=== PATIENT | female | born 1945 | race Two or more races ===

== ENCOUNTER 2022-01-20 12:08 | Inpatient (IN) | payer MEDICARE ==
[~2022-01-20] VITALS: Ht 162.6 cm; Wt 71.9 kg
[2022-01-20 13:43] LABS: Basophils # (auto) 0 10 ^3/uL (0-0.2); Basophils % (auto) 0.5 % (0.0-2.0); Eosinophils # (auto) 0 10 ^3/uL (0-0.8); Eosinophils % (auto) 0.1 % (0.0-7.0); Hematocrit 44.2 % (36.0-46.0); Hemoglobin 14.4 g/dL (12.2-16.2); Lymphocytes # (auto) 1.5 10 ^3/uL (0.4-5.4); Lymphocytes % (auto) 29.9 % (10.0-50.0); Mean Corpuscular Hgb Conc. 32.6 g/dL (32.0-36.0); Mean Corpuscular Volume 88.8 fL (80.0-100.0); Monocytes # (auto) 0.4 10 ^3/uL (0-1.3); Monocytes % (auto) 7.6 % (0.0-12.0); Neutrophils # (auto) 3.1 10 ^3/uL (1.6-8.6); Neutrophils % (auto) 61.9 % (37.0-80.0); Nucleated Red Blood Cells % 0.2 %; Red Blood Cells 4.97 10^6/uL (4.0-5.20); Red Cell Distribution Width 12.8 % (11.8-14.3)
[2022-01-20 14:00] LABS: Albumin 3.3 g/dL (3.4-5.0); Calcium 8.7 mg/dL (8.5-10.1); Potassium 4.5 mmol/L (3.5-5.1)
[2022-01-20 14:05] LABS: BUN/Creatinine Ratio 15.8; Bilirubin, Total 0.3 mg/dL (0.2-1.0)
[2022-01-20] MEDS ORDERED: HYDROmorphone HCL 2 MG/ML VL/or syr IV PRN (16:30)
[2022-01-20] MEDS ORDERED: DOCUSATE SOD 100 MG CAP PO PRN (16:30)
[2022-01-20] MEDS ORDERED: ACETAMINOPHEN 325 MG TAB PO PRN (16:30)
[2022-01-20] MEDS ORDERED: NITROGLYCERIN 0.4 MG SL TAB SL PRN (16:30)
[2022-01-20] MEDS ORDERED: HYDROcodone-ACET 5/325MG TAB PO PRN (16:30)
[2022-01-20] MEDS ORDERED: ONDANSETRON HCL 4 MG/2 ML VIAL IV PRN (16:30)
[2022-01-20] MEDS ORDERED: dilTIAZem HCL 180MG ER CAP PO ONE (16:30)
[2022-01-20] MEDS ORDERED: LACTATED RINGER'S 1,000 ML IV ONE (16:45)
[2022-01-20] MEDS: SODIUM CHLOR 0.9% PF (SALINE LOCK) 10ML VIAL/SYR IV SCH (22:22)
[2022-01-20] MEDS: INSULIN LANTUS (GLARGINE) 1 /0.01ml (100units/ml) SC SCH (22:32)
[2022-01-20] MEDS ORDERED: hydrALAZINE HCL 20 MG/ML VL IV ONE (22:45)
[2022-01-20 22:50] VITALS: BP 182/87
[2022-01-20] MEDS ORDERED: FEXO1TAB41 PO (23:06)
[2022-01-20] MEDS ORDERED: GABA300C10 PO (23:06)
[2022-01-20] MEDS ORDERED: LIFI5DRO2 OP (23:06)
[2022-01-20] MEDS ORDERED: DILT-29 PO (23:06)
[2022-01-20] MEDS ORDERED: LEVO50TA7 PO (23:06)
[2022-01-20] MEDS ORDERED: ROSU1TAB14 PO (23:06)
[2022-01-20] MEDS ORDERED: ASPI1TAB20 PO (23:06)
[2022-01-20] MEDS ORDERED: SEMA14TA (23:06)
[2022-01-20 23:56] VITALS: BP 121/60
[2022-01-21 05:00] VITALS: BP 171/81
[2022-01-21 05:49] VITALS: BP 143/68
[2022-01-21] MEDS: SODIUM CHLOR 0.9% PF (SALINE LOCK) 10ML VIAL/SYR IV SCH ×2 (06:03→21:05)
[2022-01-21] MEDS ORDERED: ATORVASTATIN 20 MG TAB PO ONE (07:30)
[2022-01-21] MEDS ORDERED: DEXTROSE (50%) 50ML SYRG IV PRN (07:45)
[2022-01-21] MEDS ORDERED: hydrALAZINE HCL 20 MG/ML VL IV PRN (08:00)
[2022-01-21] MEDS ORDERED: ADENOSINE 60 MG in GIVE UN-DILUTED 0 ML IV ONE (08:30)
[2022-01-21 08:50] LABS: Calcium 8.7 mg/dL (8.5-10.1); Potassium 3.9 mmol/L (3.5-5.1)
[2022-01-21 08:53] LABS: BUN/Creatinine Ratio 18.7
[2022-01-21 09:00] VITALS: BP 141/75
[2022-01-21] MEDS: ASPirin 81 mg TAB PO SCH (10:34)
[2022-01-21] MEDS: dilTIAZem HCL 180MG ER CAP PO SCH (10:35)
[2022-01-21] MEDS ORDERED: PANT40TA2 PO (10:37)
[2022-01-21] MEDS ORDERED: INSUINJ18 SC (10:38)
[2022-01-21] MEDS ORDERED: INSLANTI SC (10:38)
[2022-01-21] MEDS: InsuLIN REG 1unit/0.01ml Soln (100units/ml) SC SCH ×3 (11:30→21:17)
[2022-01-21] MEDS: ACCU-CHEK COMFORT CURVE STRIP VI SCH ×3 (11:30→21:06)
[2022-01-21 13:00] VITALS: BP 127/73
[2022-01-21 17:00] VITALS: BP 145/74
[2022-01-21] MEDS: INSULIN LANTUS (GLARGINE) 1 /0.01ml (100units/ml) SC SCH (21:18)
[2022-01-21 22:00] VITALS: BP 120/69
[2022-01-21] MEDS ORDERED: ATORVASTATIN 20 MG TAB PO SCH (22:00)
[2022-01-22 05:00] VITALS: BP 162/92
[2022-01-22] MEDS: ACCU-CHEK COMFORT CURVE STRIP VI SCH ×2 (06:31→11:30)
[2022-01-22] MEDS: SODIUM CHLOR 0.9% PF (SALINE LOCK) 10ML VIAL/SYR IV SCH ×2 (06:31→14:00)
[2022-01-22] MEDS: InsuLIN REG 1unit/0.01ml Soln (100units/ml) SC SCH ×2 (06:44→11:30)
[2022-01-22 06:46] VITALS: BP 146/75
[2022-01-22] MEDS ORDERED: ERGOCALCIFEROL 50,000 UNIT(1.25MG) CAP PO SCH (07:15)
[2022-01-22] MEDS: ASPirin 81 mg TAB PO SCH (08:24)
[2022-01-22] MEDS: dilTIAZem HCL 180MG ER CAP PO SCH (08:26)
[2022-01-22 09:00] VITALS: BP 177/85
[2022-01-22] MEDS ORDERED: diphenhdrAMINE HCL 25 MG CAP PO ONE (09:30)
[2022-01-22] MEDS ORDERED: PANTOPRAZOLE 40 MG TAB PO SCH (10:00)
[2022-01-22 13:00] VITALS: BP 169/97
[2022-01-22] MEDS ORDERED: cloNIDine HCL 0.1 MG TAB PO ONE (13:00)
== END 2022-01-22 15:20 | disposition home or self-care (01) | DRG 281 ==
LOC: ER 12:08 → TELE 16:19 → TELE-EAST 23:45
PROVIDERS: ADMIT Internal Medicine; ATTEND Internal Medicine
DX: R07.89 Other chest pain (principal); I21.A1 Myocardial infarction type 2; N17.9 Acute kidney failure, unspecified; E03.9 Hypothyroidism, unspecified; I25.10 Atherosclerotic heart disease of native coronary artery without angina pectoris; E11.22 Type 2 diabetes mellitus with diabetic chronic kidney disease; N18.30 Chronic kidney disease, stage 3 unspecified; Z20.822 Contact with and (suspected) exposure to COVID-19; Z88.8 Allergy status to other drugs, medicaments and biological substances; Z88.0 Allergy status to penicillin; Z88.6 Allergy status to analgesic agent; Z95.1 Presence of aortocoronary bypass graft
CPT/HCPCS: 36415; 71045; 78452; 80048; 80053; 80061; 82306; 82962; 83036; 83880; 84439; 84443; 84484; 85025; 93005; 93017; 93306; 96360; 99291; G0378; J0153; J1815